=== PATIENT | male | born 1985 | race Caucasian/White ===

== ENCOUNTER 2021-03-01 14:26 | Emergency (ER) | payer SELFPAY ==
[~2021-03-01] VITALS: Ht 175.3 cm; Wt 88.0 kg
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
--- NOTE | 2021-03-01 16:24 | NUR ---
DISCHARGE INSTRUCTIONS REVIEWED WITH PT. ALL QUESTIONS ANSWERED AT THIS TIME.
== END 2021-03-01 16:27 | disposition home or self-care (01) ==
LOC: ED 16:15
DX: K13.0 Diseases of lips (principal); F17.200 Nicotine dependence, unspecified, uncomplicated
CPT/HCPCS: 99283